=== PATIENT | male | born 1990 | race Caucasian/White ===

== ENCOUNTER 2017-04-24 21:57 | Emergency (ER) | payer MEDICAID ==
[~2017-04-24] VITALS: Ht 185.4 cm; Wt 86.2 kg
[2017-04-24 22:00] VITALS: BP 127/81
[2017-04-24] MEDS ORDERED: NALOXONE HCL 1MG/ML 2ML SYRINGE IV ONE (22:30)
[2017-04-24 22:33] LABS: Basophils # (auto) 0 uL; Basophils % (auto) 0.3 % (0.0-2.0); CONDITION Y; Eosinophils # (auto) 0.3 uL; Eosinophils % (auto) 3.6 % (0.0-7.0); Hematocrit 38.7 % (41.0-53.0); Hemoglobin 12.7 g/dL (13.5-17.5); Lymphocytes # (auto) 2.3 uL; Lymphocytes % (auto) 28.2 % (10.0-50.0); Mean Corpuscular Hemoglobin 29.5 pg (28.0-32.0); Mean Corpuscular Hgb Conc. 32.9 g/dL (32.0-36.0); Mean Corpuscular Volume 89.9 fL (80.0-100.0); Mean Platelet Volume 7.8 fL (7.4-10.4); Monocytes # (auto) 0.6 uL; Monocytes % (auto) 7.5 % (0.0-12.0); Neutrophils # (auto) 4.9 uL; Neutrophils % (auto) 60.4 % (37.0-80.0); Platelet Count (auto) 384 10^3/uL (140-450); Red Cell Distribution Width 14.7 % (11.6-16.0); White Blood Cell 8.2 10^3/uL (4.4-10.8)
[2017-04-24 22:51] LABS: Albumin 3.7 g/dL (3.4-5.0); Anion Gap 10 (5-15); BUN/Creatinine Ratio 18.9; Blood Urea Nitrogen 21 mg/dL (7-18); Calcium 8.5 mg/dL (8.5-10.1); Carbon Dioxide 27 mmol/L (21-32); Chloride 105 mmol/L (98-107); GFR African American 103 mL/min; GFR Non-African American 85 mL/min; Glucose 115 mg/dL (74-106); Magnesium 2.2 mg/dL (1.6-2.6); Potassium 3.7 mmol/L (3.5-5.1); Sodium 142 mmol/L (136-145)
[2017-04-24 22:53] LABS: Acetaminophen < 2.0 ug/mL (10-30); Salicylate < 1.7 mg/dL (2.8-20.0)
[2017-04-24 22:54] LABS: Alkaline Phosphatase 62 U/L (45-117); Aspartate Aminotransferase 31 U/L (15-37); Bilirubin, Total 0.4 mg/dL (0.2-1.0); Total Protein 7.4 g/dL (6.4-8.2)
== END 2017-04-24 23:10 | disposition left against medical advice (07) ==
LOC: EDBD 21:57 → ER 22:06
DX: T40.1X1A Poisoning by heroin, accidental (unintentional), initial encounter (principal); Z53.21 Procedure and treatment not carried out due to patient leaving prior to being seen by health care provider
CPT/HCPCS: 36415; 80053; 80320; 80329; 82962; 83735; 85025; 93005

== ENCOUNTER 2021-03-02 14:09 | Emergency (ER) | payer MEDICAID ==
[~2021-03-02] VITALS: Ht 190.5 cm; Wt 122.5 kg
[2021-03-02] MEDS ORDERED: ACETAMINOPHEN 500 MG TAB PO ONE (14:15)
[2021-03-02] MEDS ORDERED: methylPREDNISolone SOD SUCC 125 MG/2 ML VL IM ONE (15:00)
[2021-03-02] MEDS ORDERED: diphenhdrAMINE HCL 50 MG/1 ML VL IM ONE (15:00)
[2021-03-02] MEDS ORDERED: cefTRIAXone SOD 1,000 MG VL IM ONE (15:00)
[2021-03-02 16:40] VITALS: BP 125/86
== END 2021-03-02 20:46 | disposition home or self-care (01) ==
LOC: ER 14:09 → EDBD 14:09 → ER 16:00
DX: J03.90 Acute tonsillitis, unspecified (principal); F41.1 Generalized anxiety disorder; J45.909 Unspecified asthma, uncomplicated; F17.210 Nicotine dependence, cigarettes, uncomplicated; F12.10 Cannabis abuse, uncomplicated; Z59.0 Homelessness
CPT/HCPCS: 96372; 99285; J0696; J2930

== ENCOUNTER 2021-05-31 09:46 | Emergency (ER) | payer MEDICAID ==
[~2021-05-31] VITALS: Ht 185.4 cm; Wt 108.9 kg
[2021-05-31 10:01] VITALS: BP 139/88
== END 2021-05-31 10:05 | disposition left against medical advice (07) ==
LOC: EDBD 09:46 → ER 09:46
DX: T40.411A Poisoning by fentanyl or fentanyl analogs, accidental (unintentional), initial encounter (principal); Z53.21 Procedure and treatment not carried out due to patient leaving prior to being seen by health care provider; Y92.89 Other specified places as the place of occurrence of the external cause